=== PATIENT | male | born 2000 | race Two or more races ===

== ENCOUNTER 2022-09-30 15:46 | Emergency (ER) | payer OTHER ==
[~2022-09-30] VITALS: Ht 172.7 cm; Wt 58.5 kg
[2022-09-30] MEDS ORDERED: IBUP200T46 PO (15:54)
[2022-09-30] MEDS ORDERED: NAPR-837 PO (18:28)
[2022-09-30 18:38] VITALS: BP 129/81; TEMP 99.2; O2SAT 100
== END 2022-09-30 18:44 | disposition home or self-care (01) ==
LOC: M ED 15:46
DX: N50.811 Right testicular pain (principal); M46.1 Sacroiliitis, not elsewhere classified; Z79.1 Long term (current) use of non-steroidal anti-inflammatories (NSAID)